=== PATIENT | male | born 1935 | race Caucasian/White ===

== ENCOUNTER → 2019-09-08 | Outpatient (CLI) | payer MEDICARE, OTHER ==
--- NOTE | 2019-09-08 13:51 | Diagnostic Imaging Report ---
INDICATION: Pre-MRI pacemaker. TIME OF EXAM: 1:46 PM Heart size normal. Dual-lead left subclavian cardiac pacemaker is noted. No abandoned leads are identified. The lungs are clear. No infiltrates are identified. There is no effusion or pneumothorax. IMPRESSION: No acute feature is detected. Dictated by: Dictated on workstation # [id number]
--- NOTE | 2019-09-08 14:52 | Diagnostic Imaging Report ---
EXAMINATION: MRI lumbar spine without contrast. TECHNIQUE: Multiplanar, multisequence MRI of the lumbar spine was performed without contrast. HISTORY: Back pain. COMPARISON: None available. FINDINGS: The alignment of the lumbar spine is normal. Vertebral bodies demonstrate normal marrow signal intensity on all sequences. There are no compression fractures. The conus medullaris terminates at the level of L1-L2. The distal spinal cord signal intensity is normal. Intervertebral discs are diffusely desiccated. There is height loss at L3-L4 and L4-L5. Limited views of the abdomen and pelvis show no soft tissue abnormality. The aorta is normal. There is a Schmorl's node in superior endplate of L4. L1-L2: The disc is normal in configuration. Facet joints are normal. There is no neuroforaminal stenosis. There is no spinal canal stenosis. L2-L3: The disc is normal in configuration. Facet joints are normal. There is no neuroforaminal stenosis. There is no spinal canal stenosis. L3-L4: There is a mild disc bulge and mild facet arthropathy. There is minimal neuroforaminal stenosis. No spinal canal stenosis. L4-L5: There is a moderate-sized disc bulge with moderate facet arthropathy. There is mild bilateral neural foraminal stenosis with mild narrowing of the lateral recesses. L5-S1: The disc is normal in configuration. Facet joints are normal. There is no neuroforaminal stenosis. There is no spinal canal stenosis. IMPRESSION: 1. Mild disc and facet disease from L3-L5. Dictated by: Dictated on workstation # [id number]
== END ==
LOC: RAD 13:00
PROVIDERS: ATTEND Family Medicine
DX: M47.816 Spondylosis without myelopathy or radiculopathy, lumbar region (principal); Z95.0 Presence of cardiac pacemaker
CPT/HCPCS: 71045; 72148

== ENCOUNTER 2020-10-01 06:45 | Inpatient (IN) | payer MEDICARE, OTHER ==
[~2020-10-01] VITALS: Ht 180 cm; Wt 70.0 kg
--- NOTE | 2020-10-01 07:06 | ED General ---
General Stated Complaint: SOB/CHEST PAIN Source of Information: Patient History of Present Illness Date Seen by Provider: Oct 01, 2020 Time Seen by Provider: 06:58 Initial Comments Patient is an 84-year-old male with history of A. fib, CAD dementia who presents with intermittent daily chest pain with exertion starting 2 to 3 weeks ago with escalation in the past 48 hours. Patient reports dyspnea and chest pressure with mild exertion which persists after nitroglycerin and rest. Patient's current episode started at 5 AM after getting out of bed to use the bathroom. He reports mild dyspnea chest pressure. He denies nausea vomiting sweats. No abdominal pain. Patient's assistant community manager Dr. Luke Olvera practices at [facility]. Patient scheduled for stress test in 4 days. Timing/Duration: 1-3 Hours Severity: Moderate Modifying Factors: improves with Other Associated Systoms: Other Allergies and Home Medications Allergies Coded Allergies: No Known Drug Allergies (Unverified , 09/08/19) Patient Home Medication List Home Medication List Reviewed: Yes Review of Systems Review of Systems Constitutional: see HPI EENTM: see HPI Respiratory: see HPI Cardiovascular: see HPI Gastrointestinal: see HPI Genitourinary: see HPI Musculoskeletal: see HPI Skin: see HPI Psychiatric/Neurological: See HPI Hematologic/Lymphatic: See HPI Immunological/Allergic: see HPI All Other Systems Reviewed Negative Unless Noted: Yes Past Bvvsoen-Itqioj-Tsdojj Hx Patient Social History Tobacco Use?: Yes Physical Exam Vital Signs Vital Signs - First Documented 10/01/20 06:57 Temp 36.1 Pulse 61 Resp 22 B/P (MAP) 146/52 (83) Pulse Ox 93 O2 Delivery Room Air Capillary Refill : Height, Weight, BMI Height: '" Weight: lbs. oz. kg; BMI Method: General Appearance: No Apparent Distress, WD/WN Eyes: Bilateral Eye Normal Inspection, Bilateral Eye PERRL, Bilateral Eye EOMI HEENT: PERRL/EOMI, Normal ENT Inspection Neck: Full Range of Motion, Normal Inspection, Supple Respiratory: Chest Non Tender, Lungs Clear Cardiovascular: Regular Rate, Rhythm Gastrointestinal: Soft, Other (Colostomy present) Back: Normal Inspection Extremity: Normal Capillary Refill Neurologic/Psychiatric: Alert, Oriented x3 Skin: Normal Color Focused Exam Sepsis Stage: Ruled Out Progress/Results/Core Measures Suspected Sepsis SIRS Temperature: Pulse: Respiratory Rate: Laboratory Tests 10/01/20 06:51: White Blood Count 8.9 Blood Pressure / Mean: Laboratory Tests 10/01/20 06:51: Creatinine 1.09, INR Comment 2.8H, Platelet Count 206, Total Bilirubin 0.4 Results/Orders Lab Results Laboratory Tests Test 10/01/20 06:51 Range/Units White Blood Count 8.9 4.3-11.0 10^3/uL Red Blood Count 4.01 L 4.35-5.85 10^6/uL Hemoglobin 12.4 L 13.3-17.7 G/DL Hematocrit 37 L 40-54 % Mean Corpuscular Volume 92 80-99 FL Mean Corpuscular Hemoglobin 31 25-34 PG Mean Corpuscular Hemoglobin Concent 34 32-36 G/DL Red Cell Distribution Width 13.1 10.0-14.5 % Platelet Count 206 130-400 10^3/uL Mean Platelet Volume 9.0 7.4-10.4 FL Immature Granulocyte % (Auto) 1 % Neutrophils (%) (Auto) 79 H 42-75 % Lymphocytes (%) (Auto) 6 L 12-44 % Monocytes (%) (Auto) 12 0-12 % Eosinophils (%) (Auto) 2 0-10 % Basophils (%) (Auto) 0 0-10 % Neutrophils # (Auto) 7.0 1.8-7.8 X 10^3 Lymphocytes # (Auto) 0.6 L 1.0-4.0 X 10^3 Monocytes # (Auto) 1.1 H 0.0-1.0 X 10^3 Eosinophils # (Auto) 0.2 0.0-0.3 10^3/uL Basophils # (Auto) 0.0 0.0-0.1 10^3/uL Immature Granulocyte # (Auto) 0.1 0.0-0.1 10^3/uL Neutrophils % (Manual) 86 % Lymphocytes % (Manual) 7 % Monocytes % (Manual) 7 % Prothrombin Time 29.2 H 12.2-14.7 SEC INR Comment 2.8 H 0.8-1.4 Sodium Level 134 L 135-145 MMOL/L Potassium Level 4.5 3.6-5.0 MMOL/L Chloride Level 99 98-107 MMOL/L Carbon Dioxide Level 25 21-32 MMOL/L Anion Gap 10 5-14 MMOL/L Blood Urea Nitrogen 12 7-18 MG/DL Creatinine 1.09 0.60-1.30 MG/DL Estimat Glomerular Filtration Rate 64 BUN/Creatinine Ratio 11 Glucose Level 123 H 70-105 MG/DL Calcium Level 8.8 8.5-10.1 MG/DL Corrected Calcium 9.4 8.5-10.1 MG/DL Total Bilirubin 0.4 0.1-1.0 MG/DL Aspartate Amino Transf (AST/SGOT) 19 5-34 U/L Alanine Aminotransferase (ALT/SGPT) 13 0-55 U/L Alkaline Phosphatase 94 40-136 U/L Troponin I < 0.30 <0.30 NG/ML Pro-B-Type Natriuretic Peptide 249.5 H <75.0 PG/ML Total Protein 6.4 6.4-8.2 GM/DL Albumin 3.3 3.2-4.5 GM/DL My Orders Orders - BIRDIE FRIEDMAN DO Cbc With Automated Diff (10/01/20 07:04) Comprehensive Metabolic Panel (10/01/20 07:04) Chest 1 View Ap/Pa Only (10/01/20 07:04) Probnp Fs (10/01/20 07:04) Ekg-Prn For Chest Pain Or Rhyt (10/01/20 07:04) Aspirin Chewable Tablet (Baby Aspirin Ch (10/01/20 07:15) Nitroglycerin 0.4 Mg Btl 25's (Nitrostat (10/01/20 07:15) Manual Differential (10/01/20 06:51) Troponin I Fs (10/01/20 07:36) Furosemide Injection (Lasix Injection) (10/01/20 07:45) Digoxin (10/01/20 07:52) Protime With Inr (10/01/20 07:52) Medications Given in ED Current Medications Medications Dose Ordered Sig/Aleja Route Start Time Stop Time Status Last Admin Dose Admin Aspirin 324 mg ONCE ONCE PO 10/01/20 07:15 10/01/20 07:16 DC 10/01/20 07:15 324 MG Furosemide 40 mg ONCE ONCE IVP 10/01/20 07:45 10/01/20 07:46 DC 10/01/20 07:45 40 MG Nitroglycerin 1 TAB Q 5 MIN X 3 NEEDED PRN SL 10/01/20 07:15 10/01/20 07:16 0.4 MG Vital Signs/I&O 10/01/20 10/01/20 06:57 06:57 Temp 36.1 Pulse 61 Resp 22 B/P (MAP) 146/52 (83) Pulse Ox 93 O2 Delivery Room Air Room Air Capillary Refill : Departure Communication (Admissions) Chest x-ray: EKG: Normal sinus rhythm, no acute ST-T wave changes, Anginal chest pain with shortness of breath with increasing severity with persistence despite rest and nitroglycerin at home. Findings of congestive heart failure and chest x-ray. Aspirin and nitroglycerin given in the emergency department. Chest pain and shortness resolved after Lasix. However, patient still requiring 2 L of oxygen to maintain O2 saturations above 90%. Dr. Melgar accepts to [facility]. Dr. Soler notified of consult. Impression Primary Impression: Acute coronary syndrome Additional Impressions: Congestive heart failure Acute respiratory failure with hypoxia Disposition: ADMITTED INPATIENT Condition: Stable Admissions Decision to Admit Reason: Admit from ER (General) Decision to Admit/Date: Oct 01, 2020 Time/Decision to Admit Time: 09:00 Transfer Method of Transfer: EMS Departure-Patient Inst. Referrals: NOAM TERRELL MD (PCP/Family) Primary Care Physician BIRDIE FRIEDMAN DO Oct 01, 2020 07:06
[2020-10-01 07:08] LABS: BASOPHILS % (AUTO) 0 % (0-10); EOSINOPHILS # (AUTO) 0.2 10^3/uL (0.0-0.3); EOSINOPHILS % (AUTO) 2 % (0-10); HEMATOCRIT 37 % (40-54); HEMOGLOBIN 12.4 G/DL (13.3-17.7); LYMPHOCYTES # (AUTO) 0.6 X 10^3 (1.0-4.0); LYMPHOCYTES % (AUTO) 6 % (12-44); MEAN CORPUSCULAR HEMOGLOBIN 31 PG (25-34); MEAN CORPUSCULAR HGB CONC 34 G/DL (32-36); MEAN CORPUSCULAR VOLUME 92 FL (80-99); MONOCYTES # (AUTO) 1.1 X 10^3 (0.0-1.0); MONOCYTES % (AUTO) 12 % (0-12); NEUTROPHILS % (AUTO) 79 % (42-75); PLATELET COUNT 206 10^3/uL (130-400); WHITE BLOOD COUNT 8.9 10^3/uL (4.3-11.0)
[2020-10-01] MEDS ORDERED: NITROGLYCERIN 0.4 MG SL TABS BTL 25'S SL PRN ×2 (07:15→11:00)
[2020-10-01] MEDS ORDERED: ASPIRIN 81 MG CHEW (CHILDREN'S ASA) PO ONE (07:15)
[2020-10-01 07:27] LABS: ALBUMIN 3.3 GM/DL (3.2-4.5); BILIRUBIN,TOTAL 0.4 MG/DL (0.1-1.0); CALCIUM 8.8 MG/DL (8.5-10.1); CREATININE SERUM 1.09 MG/DL (0.60-1.30); POTASSIUM 4.5 MMOL/L (3.6-5.0); TOTAL PROTEIN 6.4 GM/DL (6.4-8.2)
[2020-10-01 07:30] LABS: LYMPHOCYTES % (MANUAL) 7 %; MONOCYTES % (MANUAL) 7 %; NEUTROPHILS % (MANUAL) 86 %
--- NOTE | 2020-10-01 07:37 | Diagnostic Imaging Report ---
Clinical indication: Patient with chest pain shortness of breath. Exam: Portable chest x-ray upright view. Comparisons: Chest x-ray dated 09/08/2019. Findings: Lungs/pleura: There is mild patchy airspace opacities in both lung bases which may be related to pulmonary congestion. Superimposed infectious process cannot be completely excluded. There is no pneumothorax. There is no pleural effusion. Mediastinum: Unremarkable. Pulmonary vasculature: There is interval mild pulmonary vascular congestion. Heart: There is mild cardiomegaly. Cardiac pacemaker again seen overlying left chest. Bones/extrathoracic soft tissue: There are degenerative spurs involving the spine. Impression: 1: There is cardiomegaly with interval development of mild pulmonary vascular congestion. 2: There is increased lung markings and mild air space opacities involving both lung bases. These findings may be related to pulmonary congestion, but superimposed infiltrate cannot be completely excluded. Dictated by: Dictated on workstation # [id number]
[2020-10-01] MEDS ORDERED: FUROSEMIDE 40 MG/4 ML INJ (LASIX) IVP ONE (07:45)
[2020-10-01 08:06] LABS: INR 2.8 (0.8-1.4); PROTHROMBIN TIME PATIENT 29.2 SEC (12.2-14.7)
[2020-10-01 10:42] VITALS: BP 135/60
[2020-10-01] MEDS ORDERED: CATHETER FLUSH 10 ML SYR IV PRN (11:00)
--- NOTE | 2020-10-01 11:29 | Consultation-Cardiology ---
HPI-Cardiology Cardiology Consultation: Date of Consultation 10/01/2020 Date of Admission 10/01/2020 Attending Physician Evelyn Melgar DO Admitting Physician Kang Wilder MD Consulting Physician PATRICIA LOWE JR, MD HPI: Time Seen by a Provider: 11:24 Chief Complaint: Reason for consultation: Congestive heart failure. I had the pleasure of seeing Alphonse on the medical/surgical unit at [facility] this morning. He has a cardiac history of sick sinus syndrome status post permanent pacemaker placement in 2013, paroxysmal atrial fibrillation discovered around the time of his pacemaker placement and hyperlipidemia. 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 He normally follows with a senior informatica etl developer in [place], [place]. For about the past 2 weeks he has had increasing dyspnea on exertion. At times this is associated with chest tightness. Last week he went to see his regular senior informatica etl developer but ended up having to see a nurse practitioner. He was given sublingual nitroglycerin and scheduled for a stress test later this week. He has tried taking a couple of sublingual nitroglycerin but this did not help his shortness of breath or chest tightness. This morning after he woke up he became more short of breath and again with chest tightness. He then became very dizzy and fell down. Fortunately, he did not injure himself. He was able to get up off the floor and he called one of his children who then called 911. He was taken by EMS to [facility] emergency room. He was found to be in probable heart failure and then was transferred to our hospital for further treatment and evaluation. He was given intravenous furosemide in the outside emergency room but he states this does not really seem to have helped with his breathing. When I saw him he was still feeling slightly short of breath and having some chest tightness. He denies paroxysmal nocturnal dyspnea but he does get up several times during the night to urinate and he has had shortness of breath when he gets up to use the bathroom. This does not usually happen to him. He denies orthopnea. He denies palpitations, syncope, or ankle edema. He does not smoke cigarettes. Certain portions of this document may have been dictated utilizing voice recognition technology. Inherent to this technology, typographical and grammatical errors may exist. As much as I am diligent to identify and correct these mistakes, some errors may remain in the document. Review of Systems-Cardiology Review of Systems Other comments Review of 10 organ systems is as per the history of present illness, otherwise negative. All Other Systems Reviewed Negative Unless Noted: Yes QOJ-Jmepsq-Nejlqz Hx Patient Social History Have you traveled recently?: No Alcohol Use?: No Pt feels they are or have been: No Past Medical History PMH As described under Assessment. Family Medical History Family Medical History: The patient does not know of any family history of premature coronary artery disease. Allergies and Home Medications Allergies Coded Allergies: Sulfa (Sulfonamide Antibiotics) (Verified Allergy, Unknown, 10/01/20) Patient Home Medication List Home Medication List Reviewed: Yes Exam Vital Signs Vital Signs Date Time Temp Pulse Resp B/P (MAP) Pulse Ox O2 Delivery O2 Flow Rate FiO2 10/01/20 09:27 36.0 62 20 123/50 (83) 98 Nasal Cannula 2.50 Physical Exam General: Alert. No acute distress. Well nourished and appears stated age. Eye: Extraocular movements are intact. Conjunctivae are clear. There are no xanthelasma. HENT: Normocephalic. Atraumatic. Carotid pulsations 2/2 without bruits. Neck: Jugular venous pressure does not appear elevated. No thyromegaly appreciated. Respiratory: Lungs are clear to auscultation. Respirations are non-labored. Breath sounds are equal. Symmetrical chest wall expansion. Cardiovascular: Normal rate. Regular rhythm. No murmur. No gallop. Point of maximal impulse is not appear displaced. Good pulses equal in all extremities. No edema. Gastrointestinal: Soft. Normal bowel sounds. Skin: Skin turgor is normal. There is no pallor. Musculoskeletal: No kyphosis or scoliosis appreciated. Neurologic: Alert and oriented to person, place, time. Cranial nerves 3-12 appear grossly intact. The patient has good motor tone strength in the upper and lower extremities bilaterally. Psychiatric: Cooperative. Appropriate mood & affect. Labs Laboratory Tests Test 10/01/20 06:51 Range/Units White Blood Count 8.9 4.3-11.0 10^3/uL Red Blood Count 4.01 L 4.35-5.85 10^6/uL Hemoglobin 12.4 L 13.3-17.7 G/DL Hematocrit 37 L 40-54 % Mean Corpuscular Volume 92 80-99 FL Mean Corpuscular Hemoglobin 31 25-34 PG Mean Corpuscular Hemoglobin Concent 34 32-36 G/DL Red Cell Distribution Width 13.1 10.0-14.5 % Platelet Count 206 130-400 10^3/uL Mean Platelet Volume 9.0 7.4-10.4 FL Immature Granulocyte % (Auto) 1 % Neutrophils (%) (Auto) 79 H 42-75 % Lymphocytes (%) (Auto) 6 L 12-44 % Monocytes (%) (Auto) 12 0-12 % Eosinophils (%) (Auto) 2 0-10 % Basophils (%) (Auto) 0 0-10 % Neutrophils # (Auto) 7.0 1.8-7.8 X 10^3 Lymphocytes # (Auto) 0.6 L 1.0-4.0 X 10^3 Monocytes # (Auto) 1.1 H 0.0-1.0 X 10^3 Eosinophils # (Auto) 0.2 0.0-0.3 10^3/uL Basophils # (Auto) 0.0 0.0-0.1 10^3/uL Immature Granulocyte # (Auto) 0.1 0.0-0.1 10^3/uL Neutrophils % (Manual) 86 % Lymphocytes % (Manual) 7 % Monocytes % (Manual) 7 % Prothrombin Time 29.2 H 12.2-14.7 SEC INR Comment 2.8 H 0.8-1.4 Sodium Level 134 L 135-145 MMOL/L Potassium Level 4.5 3.6-5.0 MMOL/L Chloride Level 99 98-107 MMOL/L Carbon Dioxide Level 25 21-32 MMOL/L Anion Gap 10 5-14 MMOL/L Blood Urea Nitrogen 12 7-18 MG/DL Creatinine 1.09 0.60-1.30 MG/DL Estimat Glomerular Filtration Rate 64 BUN/Creatinine Ratio 11 Glucose Level 123 H 70-105 MG/DL Calcium Level 8.8 8.5-10.1 MG/DL Corrected Calcium 9.4 8.5-10.1 MG/DL Total Bilirubin 0.4 0.1-1.0 MG/DL Aspartate Amino Transf (AST/SGOT) 19 5-34 U/L Alanine Aminotransferase (ALT/SGPT) 13 0-55 U/L Alkaline Phosphatase 94 40-136 U/L Troponin I < 0.30 <0.30 NG/ML Pro-B-Type Natriuretic Peptide 249.5 H <75.0 PG/ML Total Protein 6.4 6.4-8.2 GM/DL Albumin 3.3 3.2-4.5 GM/DL Radiology SINGLE VIEW CHEST X-RAY ([facility]) 1: There is cardiomegaly with interval development of mild pulmonary vascular congestion. 2: There is increased lung markings and mild air space opacities involving both lung bases. These findings may be related to pulmonary congestion, but superimposed infiltrate cannot be completely excluded. ECG Impression ECG Comment Electrocardiogram from [facility] shows atrial pacing with nonspecific intraventricular conduction delay and nonspecific ST changes. Diagnosis/Problems Diagnosis/Problems (1) Congestive heart failure Status: Acute Assessment & Plan: His lungs are clear but he has evidence of pulmonary congestion on his chest x-ray and elevated BNP level. These findings are consistent with acute heart failure. He denies any previous history of heart failure or reduced ejection fraction. This may be heart failure with preserved ejection fraction. I will start him on intravenous Lasix 40 mg daily. I will obtain an echocardiogram in the morning. I recommend serial troponin levels in light of his chest tightness. I suspect the chest tightness may be related to the heart failure but coronary ischemia cannot be completely excluded. I should note, the first troponin level from the outside emergency room was undetectable. (2) Paroxysmal atrial fibrillation Assessment & Plan: He is in an atrial paced rhythm at the present time. He takes warfarin for stroke prophylaxis. He is not on any AV kwan blocking agents. (3) Sick sinus syndrome Assessment & Plan: His electrocardiogram shows an atrial paced rhythm. (4) Cardiac pacemaker in situ Assessment & Plan: He follows with an outside senior informatica etl developer for his routine pacemaker checks. I do not see any strong indication for a pacemaker check while he is here in the hospital. (5) Mixed hyperlipidemia Assessment & Plan: Resume his outpatient dose of atorvastatin. PATRICIA LOWE JR, MD Oct 01, 2020 11:29
[2020-10-01] MEDS ORDERED: CYCL1DRO OU (12:16)
[2020-10-01] MEDS ORDERED: ATOR20TA66 PO (12:16)
[2020-10-01] MEDS ORDERED: FLUT15.845 NS (12:16)
[2020-10-01] MEDS ORDERED: MAGN200T8 PO (12:18)
[2020-10-01] MEDS ORDERED: TMSL.4C PO (12:19)
[2020-10-01] MEDS ORDERED: ACET325C7 PO (12:20)
[2020-10-01] MEDS ORDERED: C,E,1CAP PO (12:21)
[2020-10-01] MEDS ORDERED: WARF-48 PO (12:22)
[2020-10-01] MEDS ORDERED: DIGO-8 PO (12:24)
[2020-10-01] MEDS ORDERED: DRON400T6 PO (12:25)
--- NOTE | 2020-10-01 12:26 | History & Physical-Hospitalist ---
History of Present Illness HPI/Chief Complaint Chief complaint: Chest pain History of present illness: This is an 84-year-old white male clinic patient of [facility] who has a past medical history of cardiac issues who presented to the [place] ER with chest pain. He was in need of cardiac risk ratification cardiology consultation. His regular primary typewriter mechanic is Dr. Murray at [facility]. Family is at the bedside. Source: patient, family Exam Limitations: no limitations Date Seen 10/01/20 Time Seen by a Provider: 12:45 Attending Physician Evelyn Melgar DO PCP Self,Kang HUGHES Referring Physician Date of Admission Oct 01, 2020 at 10:34 Home Medications & Allergies Home Medications Reviewed patient Home Medication Reconciliation performed by pharmacy medication reconciliations accelerator technician and/or nursing. Patients Allergies have been reviewed. Allergies Allergies Coded Allergies Sulfa (Sulfonamide Antibiotics) (Verified Allergy, Unknown, 10/01/20) Past Kudevpc-Tyoljh-Ahajaw Hx Patient Social History Marrital Status: single Employed/Student: retired Tobacco Use?: Yes Smoking Status: Never a Smoker Use of E-Cig and/or Vaping dev: No Substance use?: No Alcohol Use?: No Pt feels they are or have been: No Immunizations Up To Date First/Initial COVID19 Vaccinat: March 2020 Second COVID19 Vaccination Julián: April 2020 Tetanus Booster (TDap): Unknown Current Status Advance Directives: No Communicates: Verbally Primary Language: Japanese Preferred Spoken Language: Japanese Is interpretation needed?: No Implanted or Applied Medical D: Pacemaker, Stents Past Medical History Surgeries: Pacemaker Atrial Fibrillation, High Cholesterol, Hypertension Review of Systems Constitutional: see HPI Cardiovascular: chest pain Physical Exam Physical Exam Vital Signs Vital Signs - First Documented 10/01/20 10/01/20 06:57 09:27 Temp 36.1 Pulse 61 Resp 22 B/P (MAP) 146/52 (83) Pulse Ox 93 O2 Delivery Room Air O2 Flow Rate 2.50 Capillary Refill : Less Than 3 Seconds Height, Weight, BMI Height: '" Weight: lbs. oz. kg; 21.60 BMI Method: General Appearance: No Apparent Distress, Chronically ill Eyes: Right Eye Normal Inspection, Right Eye PERRL HEENT: PERRL/EOMI, Normal ENT Inspection, Pharynx Normal, Moist Mucous Membranes Neck: Full Range of Motion, Normal Inspection, Non Tender Respiratory: Chest Non Tender, Lungs Clear, Normal Breath Sounds, No Accessory Muscle Use, No Respiratory Distress Cardiovascular: Regular Rate, Rhythm, No Edema, No Gallop, No JVD, No Murmur, Normal Peripheral Pulses Gastrointestinal: Normal Bowel Sounds, No Organomegaly, No Pulsatile Mass, Non Tender, Soft Back: Normal Inspection, No CVA Tenderness, No Vertebral Tenderness Extremity: Normal Capillary Refill, Normal Inspection, Normal Range of Motion, Non Tender, No Calf Tenderness, No Pedal Edema Neurologic/Psychiatric: Alert, Oriented x3, No Motor/Sensory Deficits, Normal Mood/Affect Skin: Normal Color, Warm/Dry Lymphatic: No Adenopathy Results Results/Procedures Labs Laboratory Tests 10/01/20 06:51 Patient resulted labs reviewed. Assessment/Plan Admission Diagnosis Assessment: Chest pain Advanced age Plan: Supportive care Cardiology consult Admission Status: Observation Diagnosis/Problems Diagnosis/Problems (1) Chest pain (2) Sick sinus syndrome (3) Cardiac pacemaker in situ (4) Paroxysmal atrial fibrillation Clinical Quality Measures AMI/AHF: ASA po Prior to arrival: EVELYN Jefferson DO Oct 01, 2020 12:26
[2020-10-01] MEDS ORDERED: ALBU1.25 INH (12:28)
[2020-10-01] MEDS: CATHETER FLUSH 10 ML SYR IV SCH ×2 (15:01→22:00)
[2020-10-01 16:00] VITALS: BP 135/60
[2020-10-01] MEDS ORDERED: FUROSEMIDE 40 MG/4 ML INJ (LASIX) IV SCH (17:00)
[2020-10-01 19:22] VITALS: BP 133/79
[2020-10-01] MEDS: DRONEDARONE TABLET 400 MG TABLET PO SCH (20:42)
[2020-10-01] MEDS: MAGNESIUM OXIDE (MAG-OX)400 MG TAB PO SCH (20:42)
[2020-10-01] MEDS: ARTIFICAL TEARS 0.4 ML UNIT DOSE (REFRESH PLUS) OU SCH (20:43)
[2020-10-01] MEDS: ACETAMINOPHEN 500 MG TAB (TYLENOL) PO SCH (20:43)
[2020-10-01] MEDS: TAMSULOSIN 0.4 MG (FLOMAX) CAP PO SCH (20:43)
[2020-10-01] MEDS ORDERED: warFARin 5 MG (COUMADIN) TAB PO SCH (21:00)
[2020-10-01] MEDS ORDERED: DIGOXIN 0.125 MG (LANOXIN) TAB PO SCH (21:00)
[2020-10-02] VITALS: BP_SYST 119; BP_SYST 137; BP_DIAS 60; BP_DIAS 70
[2020-10-02 04:00] VITALS: BP 148/73
[2020-10-02 05:26] LABS: BASOPHILS % (AUTO) 0 % (0-10); EOSINOPHILS # (AUTO) 0.4 10^3/uL (0.0-0.3); EOSINOPHILS % (AUTO) 4 % (0-10); HEMATOCRIT 39 % (40-54); HEMOGLOBIN 12.9 g/dL (13.3-17.7); LYMPHOCYTES # (AUTO) 0.8 10^3/uL (1.0-4.0); LYMPHOCYTES % (AUTO) 10 % (12-44); MEAN CORPUSCULAR HEMOGLOBIN 31 pg (25-34); MEAN CORPUSCULAR HGB CONC 34 g/dL (32-36); MEAN CORPUSCULAR VOLUME 91 fL (80-99); MEAN PLATELET VOLUME 9.3 fL (9.0-12.2); MONOCYTES % (AUTO) 13 % (0-12); NEUTROPHILS # (AUTO) 5.7 10^3/uL (1.8-7.8); NEUTROPHILS % (AUTO) 72 % (42-75); PLATELET COUNT 188 10^3/uL (130-400)
[2020-10-02 05:56] LABS: ALBUMIN 3.2 GM/DL (3.2-4.5)
[2020-10-02 05:57] LABS: CALCIUM 8.9 MG/DL (8.5-10.1)
[2020-10-02 05:59] LABS: INR 3.2 (0.8-1.4); TOTAL PROTEIN 6.5 GM/DL (6.4-8.2)
[2020-10-02 06:00] LABS: BILIRUBIN,TOTAL 0.6 MG/DL (0.1-1.0)
[2020-10-02 06:02] LABS: CREATININE SERUM 1.02 MG/DL (0.60-1.30)
[2020-10-02] MEDS: CATHETER FLUSH 10 ML SYR IV SCH ×3 (06:36→23:20)
[2020-10-02 07:38] VITALS: BP 118/59
[2020-10-02] MEDS: MAGNESIUM OXIDE (MAG-OX)400 MG TAB PO SCH ×2 (08:50→20:23)
[2020-10-02] MEDS: ARTIFICAL TEARS 0.4 ML UNIT DOSE (REFRESH PLUS) OU SCH ×2 (08:50→20:24)
[2020-10-02] MEDS: TAMSULOSIN 0.4 MG (FLOMAX) CAP PO SCH ×2 (08:50→20:23)
[2020-10-02] MEDS: DRONEDARONE TABLET 400 MG TABLET PO SCH ×2 (08:50→20:23)
[2020-10-02] MEDS: MULTIVIT W/MINERALS TAB (THERAGRAN M) PO SCH (08:50)
[2020-10-02] MEDS: FLUTICASONE NASAL SPRAY (FLONASE) 16 GM BTL NS SCH (08:51)
[2020-10-02] MEDS: FUROSEMIDE 40 MG/4 ML INJ (LASIX) IVP SCH (08:51)
[2020-10-02] MEDS: RT-ALBUTEROL SULF 2.5 MG/3 ML PRE-MIX VIAL INH SCH (09:33)
[2020-10-02] MEDS ORDERED: RT-ALBUINH INH (10:36)
[2020-10-02] MEDS ORDERED: MAGN400T8 PO (10:36)
[2020-10-02] MEDS ORDERED: WARF2.5T8 PO (10:36)
[2020-10-02] MEDS ORDERED: ACET-93 PO (10:36)
[2020-10-02] MEDS ORDERED: NITR0.4T42 PO (10:40)
[2020-10-02] MEDS ORDERED: CARB15DR OU (10:43)
[2020-10-02 12:19] VITALS: BP 119/59
[2020-10-02 15:27] VITALS: BP 139/73
--- NOTE | 2020-10-02 17:53 | Cardiology Progress Note ---
Progress Note-Cardiology Events since last exam Date Seen by Provider: Oct 02, 2020 Time Seen by Provider: 17:48 Events since last exam I am seeing him due to heart failure. He normally follows with a content assistant in [place]. His breathing is improved but not quite back to baseline. He is getting short of breath just walking to the bathroom. 2 weeks ago he could walk a mile and a half without shortness of breath. He denies chest discomfort, palpitations, syncope, or ankle edema. I also spoke to 2 family members who were in his room. His family members tell me that he does eat a lot of prepared foods. Certain portions of this document may have been dictated utilizing voice recognition technology. Inherent to this technology, typographical and grammatical errors may exist. As much as I am diligent to identify and correct these mistakes, some errors may remain in the document. Vitals Last set of Vitals Signs Vital Signs 10/02/20 10/02/20 12:19 15:27 Temp 36.4 Pulse 97 Resp 28 B/P (MAP) 139/73 (95) Pulse Ox 93 O2 Delivery Room Air O2 Flow Rate 1.50 Labs Labs Laboratory Tests 10/02/20 05:05 Exam Vital Signs Vital Signs Date Time Temp Pulse Resp B/P (MAP) Pulse Ox O2 Delivery O2 Flow Rate FiO2 10/02/20 15:27 36.4 97 139/73 (95) 93 Room Air 10/02/20 12:19 28 1.50 Physical Exam General: Alert. No acute distress. Eye: No xanthelasma. HENT: Normocephalic. Neck: Jugular venous pressure does not appear elevated. Respiratory: Lungs may have some fine rhonchi at the bases. Respirations are non-labored. Breath sounds are equal. Symmetrical chest wall expansion. Cardiovascular: Normal rate. Regular rhythm. No murmur. No gallop. No edema. Gastrointestinal: Soft. Normal bowel sounds. Skin: Warm. Dry. Neurologic: Alert and oriented to person, place, time. Cranial nerves 3-11 grossly intact. Psychiatric: Cooperative. Appropriate mood & affect. Labs Laboratory Tests Test 10/02/20 05:05 Range/Units White Blood Count 8.0 4.3-11.0 10^3/uL Red Blood Count 4.21 L 4.30-5.52 10^6/uL Hemoglobin 12.9 L 13.3-17.7 g/dL Hematocrit 39 L 40-54 % Mean Corpuscular Volume 91 80-99 fL Mean Corpuscular Hemoglobin 31 25-34 pg Mean Corpuscular Hemoglobin Concent 34 32-36 g/dL Red Cell Distribution Width 13.0 10.0-14.5 % Platelet Count 188 130-400 10^3/uL Mean Platelet Volume 9.3 9.0-12.2 fL Immature Granulocyte % (Auto) 1 % Neutrophils (%) (Auto) 72 42-75 % Lymphocytes (%) (Auto) 10 L 12-44 % Monocytes (%) (Auto) 13 H 0-12 % Eosinophils (%) (Auto) 4 0-10 % Basophils (%) (Auto) 0 0-10 % Neutrophils # (Auto) 5.7 1.8-7.8 10^3/uL Lymphocytes # (Auto) 0.8 L 1.0-4.0 10^3/uL Monocytes # (Auto) 1.0 0.0-1.0 10^3/uL Eosinophils # (Auto) 0.4 H 0.0-0.3 10^3/uL Basophils # (Auto) 0.0 0.0-0.1 10^3/uL Immature Granulocyte # (Auto) 0.1 0.0-0.1 10^3/uL Prothrombin Time 33.0 H 12.2-14.7 SEC INR Comment 3.2 H 0.8-1.4 Sodium Level 133 L 135-145 MMOL/L Potassium Level 4.0 3.6-5.0 MMOL/L Chloride Level 97 L 98-107 MMOL/L Carbon Dioxide Level 26 21-32 MMOL/L Anion Gap 10 5-14 MMOL/L Blood Urea Nitrogen 15 7-18 MG/DL Creatinine 1.02 0.60-1.30 MG/DL Estimat Glomerular Filtration Rate 70 BUN/Creatinine Ratio 15 Glucose Level 104 70-105 MG/DL Calcium Level 8.9 8.5-10.1 MG/DL Corrected Calcium 9.5 8.5-10.1 MG/DL Total Bilirubin 0.6 0.1-1.0 MG/DL Aspartate Amino Transf (AST/SGOT) 20 5-34 U/L Alanine Aminotransferase (ALT/SGPT) 16 0-55 U/L Alkaline Phosphatase 83 40-136 U/L Total Protein 6.5 6.4-8.2 GM/DL Albumin 3.2 3.2-4.5 GM/DL Triglycerides Level 52 <150 MG/DL Cholesterol Level 98 < 200 MG/DL LDL Cholesterol Direct 42 1-129 MG/DL VLDL Cholesterol 10 5-40 MG/DL HDL Cholesterol 40 40-60 MG/DL Radiology ECHOCARDIOGRAM (10/02/2020): 1. Normal left ventricular chamber size, wall thickness and systolic function with an estimated ejection fraction of 60-65%. 2. Grade 1 diastolic dysfunction. 3. Mild aortic regurgitation. 4. Estimated pulmonary artery systolic pressure is 34 mmHg. Diagnosis/Problems Diagnosis/Problems (1) Acute diastolic congestive heart failure Assessment & Plan: He has a normal ejection fraction with no significant valvular heart disease. He does have grade 1 diastolic dysfunction. From his family's description, he probably eats food that is high in sodium. This may have contributed to his congestive heart failure. Symptomatically he is somewhat improved but not quite back to baseline. I suggest we continue with the IV Lasix and obtain a follow-up chest x-ray in the morning. (2) Aortic regurgitation Assessment & Plan: This was an incidental finding on his echocardiogram. This is in the mild range and should not be contributing to his symptoms. (3) Paroxysmal atrial fibrillation Assessment & Plan: No signs of recurrent atrial fibrillation during this admission. He takes warfarin for stroke prophylaxis. He is not on any AV kwan blocking agents. (4) Sick sinus syndrome Assessment & Plan: He has a permanent pacemaker that appears to be functioning normally. (5) Cardiac pacemaker in situ Assessment & Plan: He follows with an outside content assistant for his routine pacemaker checks. I do not see any strong indication for a pacemaker check while he is here in the hospital. (6) Mixed hyperlipidemia Assessment & Plan: Continue atorvastatin. PATRICIA LOWE JR, MD Oct 02, 2020 17:53
--- NOTE | 2020-10-02 19:52 | Progress Note ---
JOON LESLIE 10/02/201951: Subjective Subjective/Events-last exam Alphonse Mireles is an 84 year [place] white male in the hospital due to chest pain and shortness of breath. The pain is described as heavy and continuous, rated 5/10. This episode has lasted for the last 2 weeks. Reports chest pain off and on prior to this. Patient fell yesterday and is ultimately what led him to be admitted. Patient was very active prior to the chest pain and is eager to hear results. It was mentioned by family members that his memory may not be quite what it used to be but upon performing mini mental exam and talking with patient he still seemed alert and with it. Review of Systems General: Night Sweats HEENT: Visual Changes Pulmonary: Dyspnea Cardiovascular: Chest Pain Gastrointestinal: No: Nausea, Vomiting, Abdominal Pain, Diarrhea, Constipation Musculoskeletal: No: neck pain, shoulder pain, arm pain, back pain, hand pain, leg pain, foot pain Neurological: No: Weakness, Numbness, Change in speech, Confusion, Seizures, Other Objective Exam Last Set of Vital Signs Vital Signs Date Time Temp Pulse Resp B/P (MAP) Pulse Ox O2 Delivery O2 Flow Rate FiO2 10/02/20 15:27 36.4 97 139/73 (95) 93 Room Air 10/02/20 12:19 28 1.50 Capillary Refill : Less Than 3 Seconds I&O Intake and Output 10/02/20 00:00 Intake Total 1560 ml Output Total 1700 ml Balance -140 ml Intake Oral 1560 ml Output Urine Total 1700 ml # Voids 1 # Bowel Movements 2 Daily Weight Change No General: Alert, Oriented X3, Cooperative HEENT: Atraumatic, PERRLA, EOMI, Mucous Memb Moist/[place] Neck: Supple, No Thyromegaly Lungs: Other (moderate crackles in LLL) Heart: Regular Rate, Normal S1, Normal S2, No Murmurs Extremities: Normal Pulses Skin: Other Neuro: Normal Speech, Strength at 5/5 X4 Ext, Sensation Intact, Cranial Nerves 3-12 NL Psych/Mental Status: Mental Status NL Results/Procedures Lab Laboratory Tests 10/02/20 05:05: White Blood Count 8.0, Red Blood Count 4.21L, Hemoglobin 12.9L, Hematocrit 39L, Mean Corpuscular Volume 91, Mean Corpuscular Hemoglobin 31, Mean Corpuscular Hemoglobin Concent 34, Red Cell Distribution Width 13.0, Platelet Count 188, Mean Platelet Volume 9.3, Immature Granulocyte % (Auto) 1, Neutrophils (%) (Auto) 72, Lymphocytes (%) (Auto) 10L, Monocytes (%) (Auto) 13H, Eosinophils (%) (Auto) 4, Basophils (%) (Auto) 0, Neutrophils # (Auto) 5.7, Lymphocytes # (Auto) 0.8L, Monocytes # (Auto) 1.0, Eosinophils # (Auto) 0.4H, Basophils # (Auto) 0.0, Immature Granulocyte # (Auto) 0.1, Prothrombin Time 33.0H, INR Comment 3.2H, Sodium Level 133L, Potassium Level 4.0, Chloride Level 97L, Carbon Dioxide Level 26, Anion Gap 10, Blood Urea Nitrogen 15, Creatinine 1.02, Estimat Glomerular Filtration Rate 70, BUN/Creatinine Ratio 15, Glucose Level 104, Calcium Level 8.9, Corrected Calcium 9.5, Total Bilirubin 0.6, Aspartate Amino Transf (AST/SGOT) 20, Alanine Aminotransferase (ALT/SGPT) 16, Alkaline Phosphatase 83, Total Protein 6.5, Albumin 3.2, Triglycerides Level 52, Cholesterol Level 98, LDL Cholesterol Direct 42, VLDL Cholesterol 10, HDL Cholesterol 40 Assessment/Plan Assessment/Plan Admission Dx Heart Failure Assessment & Plan Heart Failure -Echo was performed this morning to look into heart function. Results showed a grade 1 diastolic dysfunction as well as aortic valve regurgitation. -Consult cardiology to assess if pt. is a candidate for valve replacement. consider Beta denise to help heart function in meantim. A Fib -Pt. has history of A fib for which he has a pacemaker and is on warfarin. - Continue his current regimen Clinical Quality Measures AMI/AHF: ASA po Prior to arrival: ALLAN Moreno MD 10/02/20 9615: Assessment/Plan Assessment/Plan (1) Chest pain Status: Acute Assessment & Plan: Troponin negative. Appreciate Cardiology recommendations. (2) Acute diastolic congestive heart failure Status: Acute Assessment & Plan: Appreciate Cardiology recommendations. Echo 10/02 with grade 1 diastolic dysfunction, normal EF. Continuing diuresis. (3) Sick sinus syndrome (4) Cardiac pacemaker in situ (5) Mixed hyperlipidemia (6) Aortic regurgitation Assessment & Plan: Not significant per echo report, appreciate Cardiology recommendations. (7) Atrial fibrillation Status: Chronic Assessment & Plan: Resume home meds. (8) DVT prophylaxis Status: Acute Assessment & Plan: On coumadin. Supervisory-Addendum Brief Verification & Attestation Participated in pt care: history, MDM, physical Personally performed: exam, history, MDM Care discussed with: Medical Student Procedures: n/a I personally saw and examined patient today and my findings match those documented by the medical student. See problem list for my assessment and plan. JOON LESLIE Oct 02, 2020 19:52 ALLAN METZGER MD Oct 02, 2020 21:57
[2020-10-02 20:00] VITALS: BP 126/75
[2020-10-02] MEDS: ACETAMINOPHEN 500 MG TAB (TYLENOL) PO SCH (20:23)
[2020-10-02] MEDS: warFARin 2.5 MG (COUMADIN) TAB PO SCH (20:28)
[2020-10-03] VITALS (7 sets, daily range): BP systolic 114–145; BP diastolic 55–74
[2020-10-03] MEDS: MULTIVIT W/MINERALS TAB (THERAGRAN M) PO SCH (05:53)
[2020-10-03 05:54] LABS: HEMATOCRIT 38 % (40-54); HEMOGLOBIN 12.6 g/dL (13.3-17.7); MEAN CORPUSCULAR HEMOGLOBIN 31 pg (25-34); MEAN CORPUSCULAR HGB CONC 34 g/dL (32-36); MEAN CORPUSCULAR VOLUME 92 fL (80-99); MEAN PLATELET VOLUME 9.4 fL (9.0-12.2); PLATELET COUNT 199 10^3/uL (130-400)
[2020-10-03] MEDS: CATHETER FLUSH 10 ML SYR IV SCH ×3 (05:54→22:30)
[2020-10-03 06:09] LABS: INR 3.2 (0.8-1.4); PROTHROMBIN TIME PATIENT 33.2 SEC (12.2-14.7)
[2020-10-03 06:10] LABS: POTASSIUM 3.8 MMOL/L (3.6-5.0)
[2020-10-03 06:12] LABS: CALCIUM 8.5 MG/DL (8.5-10.1)
[2020-10-03 06:16] LABS: CREATININE SERUM 1.22 MG/DL (0.60-1.30)
[2020-10-03] MEDS: RT-ALBUTEROL SULF 2.5 MG/3 ML PRE-MIX VIAL INH SCH (07:51)
--- NOTE | 2020-10-03 07:59 | Progress Note ---
JOON LESLIE 10/03/20 0759: Subjective Subjective/Events-last exam Alphonse Perdomo is an 84 year old male in the hospital with chest pain of 2 weeks duration. Patient feels better today than yesterday and reports the chest pain is primarily when moving versus when at rest. chest pain is 3/10 when present, down from 5/10 yesterday. He is currently on 1.5 L O2 and statting at 96% O2. He is wondering if he will be able to get off the O2 before he goes home. Review of Systems General: No Chills, No Night Sweats; Appetite (good) HEENT: No Head Aches Pulmonary: No Dyspnea, No Cough Cardiovascular: Chest Pain (pain has changed to 3/10 and primarily when moving); No: Palpitations, Edema Gastrointestinal: No: Nausea, Vomiting, Abdominal Pain, Constipation Genitourinary: No Dysuria, No Incontinence, No Retention Musculoskeletal: No: neck pain, shoulder pain, arm pain, back pain, hand pain, leg pain, foot pain Neurological: No: Numbness, Confusion Objective Exam Last Set of Vital Signs Vital Signs Date Time Temp Pulse Resp B/P (MAP) Pulse Ox O2 Delivery O2 Flow Rate FiO2 10/03/20 07:00 65 10/03/20 03:31 36.1 16 114/55 (74) 96 Nasal Cannula 1.50 Capillary Refill : Less Than 3 Seconds I&O Intake and Output 10/03/20 00:00 Intake Total 2460 ml Balance 2460 ml Intake Oral 2460 ml # Voids 9 # Bowel Movements 2 General: Alert, Oriented X3, Cooperative HEENT: Atraumatic, PERRLA, EOMI, Mucous Memb Moist/[place] Lungs: Other (Crackles in both Lower lobes) Heart: Regular Rate Abdomen: Normal Bowel Sounds, Other (Colostomy present, no redness, swelling or iritation in the area.) Extremities: No Cyanosis, No Edema, Normal Pulses, No Tenderness/Swelling Skin: No Breakdown Neuro: Normal Speech, Cranial Nerves 3-12 NL Psych/Mental Status: Mental Status NL Results/Procedures Lab Laboratory Tests 10/03/20 05:03: White Blood Count 9.0, Red Blood Count 4.08L, Hemoglobin 12.6L, Hematocrit 38L, Mean Corpuscular Volume 92, Mean Corpuscular Hemoglobin 31, Mean Corpuscular Hemoglobin Concent 34, Red Cell Distribution Width 12.8, Platelet Count 199, Mean Platelet Volume 9.4, Prothrombin Time 33.2H, INR Comment 3.2H, Sodium Level 129L, Potassium Level 3.8, Chloride Level 94L, Carbon Dioxide Level 24, Anion Gap 11, Blood Urea Nitrogen 22H, Creatinine 1.22, Estimat Glomerular Filtration Rate 57, BUN/Creatinine Ratio 18, Glucose Level 101, Calcium Level 8.5 Assessment/Plan Assessment/Plan Assessment & Plan Heart Failure with preserved ejection fraction -continue Lasix and consider switching to sacubitril/Valsartan combination upon discharge for management of symptoms. -Get patient moving and exercising again as tolerating. A Fib -Pt. has history of A fib for which he has a pacemaker and is on warfarin, Digoxin, and Dronedarone. -Patients INR is mildly high (3.2) but we are unconcerned about it at this time and no dosing adjustment is necessary. Hypervolemic Hyponatremia -Continue Lasix injections to remove excess fluid. -Follow lab value and see if Sodium returns to normal values. Normocytic Anemia -appears minor at this time. Could be due an anemia of chronic disease due to the newly found heart failure.. -Follow for now and address if it acutely worsens. Clinical Quality Measures AMI/AHF: ASA po Prior to arrival: ALLAN Moreno MD 10/03/20 0805: Assessment/Plan Assessment/Plan (1) Chest pain Status: Acute Assessment & Plan: Troponin negative. Appreciate Cardiology recommendations. (2) Acute diastolic congestive heart failure Status: Acute Assessment & Plan: Appreciate Cardiology recommendations. Echo 10/02 with grade 1 diastolic dysfunction, normal EF. Continuing diuresis. Still significantly short of breath with activity, continue PT and advancing activity as tolerated. (3) Sick sinus syndrome (4) Cardiac pacemaker in situ (5) Mixed hyperlipidemia (6) Aortic regurgitation Assessment & Plan: Not significant per echo report, appreciate Cardiology recommendations. (7) Atrial fibrillation Status: Chronic Assessment & Plan: Resume home meds. (8) DVT prophylaxis Status: Acute Assessment & Plan: On coumadin. Supervisory-Addendum Brief Verification & Attestation Participated in pt care: history, MDM, physical Personally performed: exam, history, MDM Care discussed with: Medical Student Procedures: n/a I personally saw and examined this patient and did my own history and exam and agree with documentation by medical student. See problem list for my assessment and plan. JOON LESLIE Oct 03, 2020 07:59 ALLAN METZGER MD Oct 03, 2020 08:05
[2020-10-03] MEDS: TAMSULOSIN 0.4 MG (FLOMAX) CAP PO SCH ×2 (08:26→20:29)
[2020-10-03] MEDS: ARTIFICAL TEARS 0.4 ML UNIT DOSE (REFRESH PLUS) OU SCH ×2 (08:26→20:28)
[2020-10-03] MEDS: FLUTICASONE NASAL SPRAY (FLONASE) 16 GM BTL NS SCH (08:26)
[2020-10-03] MEDS: DIGOXIN 0.125 MG (LANOXIN) TAB PO SCH (08:26)
[2020-10-03] MEDS: MAGNESIUM OXIDE (MAG-OX)400 MG TAB PO SCH ×2 (08:26→20:27)
[2020-10-03] MEDS: DRONEDARONE TABLET 400 MG TABLET PO SCH ×2 (08:26→20:27)
[2020-10-03] MEDS: FUROSEMIDE 40 MG/4 ML INJ (LASIX) IVP SCH (08:26)
--- NOTE | 2020-10-03 09:20 | Diagnostic Imaging Report ---
EXAMINATION: Chest 2 view HISTORY: 10/01/2020 COMPARISON: None available. FINDINGS: Heart size and pulmonary vasculature are normal. Stable mild interstitial opacities within the mid and lower lungs. No pleural effusion or pneumothorax. The osseous structures are intact. Left-sided cardiac device is unchanged. IMPRESSION: 1. Stable mild interstitial opacities in the mid and lower lungs. Dictated by: Dictated on workstation # [id number]
--- NOTE | 2020-10-03 09:58 | Physical Therapy Evaluation ---
PT Evaluation-General Medical Diagnosis Admission Date Oct 01, 2020 at 10:34 Medical Diagnosis: SOB/CP/CHF Onset Date: Oct 01, 2020 Therapy Diagnosis Therapy Diagnosis: debility Precautions Precautions/Isolations: Standard Precautions Referral Physician: Malcolm Medical History Pertinent Medical History: Atrial Fib, CAD, Dementia, HTN Current History ER secondary to CP with exertion Reviewed History: Yes Social History Home: Single Level Current Living Status: Alone Entry Into Home: Stairs Without Railing PT Steps Into Home: 3 Prior Prior Level of Function SCALE: Activities may be completed with or without assistive devices. 8-[id number] completes the activity by him/herself with no assistance from a helper. 5-Set-up or Clean-up Assistance-helper sets up or cleans up; patient completes activity. [place] assists only prior to or following the activity. 4-Supervision or Touching Assistance-helper provides verbal cues and/or touching/steadying and/or contact guard assistance as patient completes activity. Assistance may be provided throughout the activity or intermittently. 3-Partial/Moderate Assistance-helper does LESS THAN HALF the effort. [place] lifts, holds or supports trunk or limbs, but provides less than half the effort. 2-Substantial/Maximal Assistance-helper does MORE THAN HALF the effort. [place] lifts or holds trunk or limbs and provides more than half the effort. 5-Blmbtdeie-lsgtvn does ALL the effort. Patient does none of the effort to complete the activity. Or, the assistance of 2 or more helpers is required for the patient to complete the activity. If activity was not attempted, code reason: 7-Patient Refused. 9-Not Applicable-not attempted and the patient did not perform the activity before the current illness, exacerbation or injury. 10-Not Attempted due to Environmental Limitations-(lack of equipment, weather restraints, etc.). 88-Not Attempted due to Medical Conditions or Safety Concerns. Bed Mobility: 6 Transfers (B,C,W/C): 6 Gait: 6 Stairs: 6 Indoor Mobility (Ambulation): Independent Stairs: Independent Prior Devices Use: None PT Evaluation-Current Subjective Patient agrees to PT. RT present with breathing treatment and reports SAO2 at rest on RA is 92%. Objective Patient Orientation: Person, Time, Situation ROM/Strength ROM Lower Extremities bilateral LE WFL Strength Lower Extremities 4/5 grossly bilateral LE Integumentary/Posture Bowel Incontinence: No Bladder Incontinence: No Posture slightly kyphotic Neuromuscular (Tone, Coordination, Reflexes) grossly intact Sensory Vision: Functional Hearing: Impaired Sensation Right Lower Extremit: Intact Sensation Left Lower Extremity: Intact Transfers Roll Left to Right (QC): 6 Sit to Lying (QC): 6 Lying to Sitting/Side of Bed(Q: 6 Sit to Stand (QC): 4 Chair/Ljr-vc-Spbxh Xfer(QC): 4 Gait Does the Patient Walk?: Yes Mode of Locomotion: Walk Anticipated Mode of Locomotion: Walk Walk 10 feet (QC): 4 (SBA) Walk 50 ft with 2 Turns(QC): 4 (SBA) Walk 150 ft (QC): 4 (SBA) Distance: 175' Gait Assistive Device: FWW Comments/Gait Description increase SOA with ambulation with FWW for energy conservation Balance Sitting Static: Normal Sitting Dynamic: Normal Standing Static: Good Standing Dynamic: Good Treatment SAO2 decreases to 83% RA with activity. RT notified and 2L O2 placed on patient with recovery to 92%. Assessment/Needs 84 y.o. male, will be seen by skilled PT to address functional mobility and pulmonary function with mobility. Rehab Potential: Fair PT Java Architect Goals Java Architect Goals PT Java Architect Goals Time Frame: Oct 07, 2020 Roll Left & Right (QC): 6 Sit to Lying (QC): 6 Lying-Sitting on Side/Bed(QC): 6 Sit to Stand (QC): 6 Chair/Hqw-hm-Uafen Xfer(QC): 6 Toilet Transfer (QC): 6 Does the Patient Walk: Yes Walk 10 feet (QC): 6 Walk 50ft with 2 Turns (QC): 6 Walk 150 ft (QC): 6 PT Plan Problem List Problem List: Activity Tolerance, Gait, Transfer Treatment/Plan Treatment Plan: Continue Plan of Care Treatment Plan: Bed Mobility, Education, Functional Activity Ramon, Functional Strength, Gait, Safety, Therapeutic Exercise, Transfers Treatment Duration: Oct 07, 2020 Frequency: 5 times per week Estimated Hrs Per Day: .25 hour per day Patient and/or Family Agrees t: Yes Time/GCodes Time In: 750 Time Out: 808 Total Billed Treatment Time: 18 Total Billed Treatment 1 visit EVMod 18 min GIANCARLO SHERMAN PT Oct 03, 2020 09:58
--- NOTE | 2020-10-03 17:24 | Cardiology Progress Note ---
Progress Note-Cardiology Events since last exam Date Seen by Provider: Oct 03, 2020 Time Seen by Provider: 17:21 Events since last exam I am seeing him due to heart failure. He feels like his breathing is improved. However, this afternoon he stood up from his chair and felt very dizzy. He had to get his walker and sit back down. His chest felt tight for short while after he sat back down. When I saw him, he felt as though he was back to normal and denied any chest discomfort or dizziness. He denies syncope. He denies palpitations or lower extremity edema. Certain portions of this document may have been dictated utilizing voice recognition technology. Inherent to this technology, typographical and grammatical errors may exist. As much as I am diligent to identify and correct these mistakes, some errors may remain in the document. Vitals Last set of Vitals Signs Vital Signs 10/03/20 16:07 Temp 36.0 Pulse 94 Resp 18 B/P (MAP) 126/72 (90) Pulse Ox 96 O2 Delivery Nasal Cannula O2 Flow Rate 1.50 Labs Labs Laboratory Tests 10/03/20 05:03 Exam Vital Signs Vital Signs Date Time Temp Pulse Resp B/P (MAP) Pulse Ox O2 Delivery O2 Flow Rate FiO2 10/03/20 16:07 36.0 94 18 126/72 (90) 96 Nasal Cannula 1.50 Physical Exam General: Alert. No acute distress. Eye: No xanthelasma. HENT: Normocephalic. Neck: Jugular venous pressure does not appear elevated. Respiratory: Lungs are clear to auscultation. Respirations are non-labored. Breath sounds are equal. Symmetrical chest wall expansion. Cardiovascular: Normal rate. Regular rhythm. No murmur. No gallop. No edema. Gastrointestinal: Soft. Normal bowel sounds. Skin: Warm. Dry. Neurologic: Alert and oriented to person, place, time. Cranial nerves 3-11 grossly intact. Psychiatric: Cooperative. Appropriate mood & affect. Labs Laboratory Tests Test 10/03/20 05:03 Range/Units White Blood Count 9.0 4.3-11.0 10^3/uL Red Blood Count 4.08 L 4.30-5.52 10^6/uL Hemoglobin 12.6 L 13.3-17.7 g/dL Hematocrit 38 L 40-54 % Mean Corpuscular Volume 92 80-99 fL Mean Corpuscular Hemoglobin 31 25-34 pg Mean Corpuscular Hemoglobin Concent 34 32-36 g/dL Red Cell Distribution Width 12.8 10.0-14.5 % Platelet Count 199 130-400 10^3/uL Mean Platelet Volume 9.4 9.0-12.2 fL Prothrombin Time 33.2 H 12.2-14.7 SEC INR Comment 3.2 H 0.8-1.4 Sodium Level 129 L 135-145 MMOL/L Potassium Level 3.8 3.6-5.0 MMOL/L Chloride Level 94 L 98-107 MMOL/L Carbon Dioxide Level 24 21-32 MMOL/L Anion Gap 11 5-14 MMOL/L Blood Urea Nitrogen 22 H 7-18 MG/DL Creatinine 1.22 0.60-1.30 MG/DL Estimat Glomerular Filtration Rate 57 BUN/Creatinine Ratio 18 Glucose Level 101 70-105 MG/DL Calcium Level 8.5 8.5-10.1 MG/DL Diagnosis/Problems Diagnosis/Problems (1) Acute diastolic congestive heart failure Status: Acute Assessment & Plan: His echocardiogram showed a normal ejection fraction with no significant valvular heart disease. He does have grade 1 diastolic dysfunction. From his family's description, he probably eats food that is high in sodium. This may have contributed to his congestive heart failure. Symptomatically he is somewhat improved but not quite back to baseline. His chest x-ray from this morning looked similar to admission. I suggest we continue with the IV Lasix. He may be ready for discharge tomorrow. I am not quite sure what to make of his dizzy episode. (2) Aortic regurgitation Assessment & Plan: This was an incidental finding on his echocardiogram. This is in the mild range and should not be contributing to his symptoms. This will need to be followed longitudinally by his regular fish worm grower at the outside facility. (3) Paroxysmal atrial fibrillation Assessment & Plan: No signs of recurrent atrial fibrillation during this admission. He takes warfarin for stroke prophylaxis. He is not on any AV kwan blocking agents. (4) Sick sinus syndrome Assessment & Plan: He has a permanent pacemaker that appears to be functioning normally. (5) Cardiac pacemaker in situ Assessment & Plan: He follows with an outside fish worm grower for his routine pacemaker checks. I do not see any strong indication for a pacemaker check while he is here in the hospital. (6) Mixed hyperlipidemia Assessment & Plan: Continue atorvastatin. PATRICIA LOWE JR, MD Oct 03, 2020 17:24
[2020-10-03] MEDS: ACETAMINOPHEN 500 MG TAB (TYLENOL) PO SCH (20:27)
[2020-10-03] MEDS: warFARin 2.5 MG (COUMADIN) TAB PO SCH (20:27)
[2020-10-04] VITALS: BP 117/65
[2020-10-04 04:00] VITALS: BP 144/77
[2020-10-04 05:08] LABS: HEMATOCRIT 36 % (40-54); HEMOGLOBIN 12.2 g/dL (13.3-17.7); MEAN CORPUSCULAR HEMOGLOBIN 31 pg (25-34); MEAN CORPUSCULAR HGB CONC 34 g/dL (32-36); MEAN CORPUSCULAR VOLUME 92 fL (80-99); MEAN PLATELET VOLUME 8.9 fL (9.0-12.2); PLATELET COUNT 205 10^3/uL (130-400); WHITE BLOOD COUNT 7.5 10^3/uL (4.3-11.0)
[2020-10-04 05:21] LABS: POTASSIUM 4.4 MMOL/L (3.6-5.0)
[2020-10-04 05:22] LABS: CALCIUM 8.5 MG/DL (8.5-10.1)
[2020-10-04 05:27] LABS: CREATININE SERUM 1.25 MG/DL (0.60-1.30)
[2020-10-04] MEDS: CATHETER FLUSH 10 ML SYR IV SCH ×2 (05:54→08:50)
[2020-10-04] MEDS: MULTIVIT W/MINERALS TAB (THERAGRAN M) PO SCH (05:54)
[2020-10-04] MEDS: RT-ALBUTEROL SULF 2.5 MG/3 ML PRE-MIX VIAL INH SCH (07:23)
[2020-10-04 08:00] VITALS: BP 134/68
[2020-10-04] MEDS: MAGNESIUM OXIDE (MAG-OX)400 MG TAB PO SCH (08:49)
[2020-10-04] MEDS: FUROSEMIDE 40 MG/4 ML INJ (LASIX) IVP SCH (08:49)
[2020-10-04] MEDS: DIGOXIN 0.125 MG (LANOXIN) TAB PO SCH (08:49)
[2020-10-04] MEDS: FLUTICASONE NASAL SPRAY (FLONASE) 16 GM BTL NS SCH (08:49)
[2020-10-04] MEDS: DRONEDARONE TABLET 400 MG TABLET PO SCH (08:49)
[2020-10-04] MEDS: TAMSULOSIN 0.4 MG (FLOMAX) CAP PO SCH (08:49)
[2020-10-04] MEDS: ARTIFICAL TEARS 0.4 ML UNIT DOSE (REFRESH PLUS) OU SCH (08:49)
--- NOTE | 2020-10-04 09:26 | Cardiology Progress Note ---
Progress Note-Cardiology Events since last exam Date Seen by Provider: Oct 04, 2020 Time Seen by Provider: 09:24 Events since last exam I am seeing him due to heart failure. He denies any further dizzy spells. His breathing is improved. He denies chest pain, palpitations, syncope or ankle edema. Vitals Last set of Vitals Signs Vital Signs 10/04/20 13:45 Temp 36.2 Pulse 80 Resp 18 B/P (MAP) 120/64 Pulse Ox 94 O2 Delivery Nasal Cannula O2 Flow Rate 2.00 Labs Labs Laboratory Tests 10/04/20 05:00 Exam Vital Signs Vital Signs Date Time Temp Pulse Resp B/P (MAP) Pulse Ox O2 Delivery O2 Flow Rate FiO2 10/04/20 13:45 36.2 80 18 120/64 94 Nasal Cannula 2.00 Physical Exam General: Alert. No acute distress. Eye: No xanthelasma. HENT: Normocephalic. Neck: Jugular venous pressure does not appear elevated. Respiratory: Slight rhonchi at right base. Respirations are non-labored. Breath sounds are equal. Symmetrical chest wall expansion. Cardiovascular: Normal rate. Regular rhythm. No murmur. No gallop. No edema. Gastrointestinal: Soft. Normal bowel sounds. Skin: Warm. Dry. Neurologic: Alert and oriented to person, place, time. Cranial nerves 3-11 grossly intact. Psychiatric: Cooperative. Appropriate mood & affect. Labs Laboratory Tests Test 10/03/20 23:24 10/04/20 05:00 Range/Units Glucometer 115 H 70-110 MG/DL White Blood Count 7.5 4.3-11.0 10^3/uL Red Blood Count 3.95 L 4.30-5.52 10^6/uL Hemoglobin 12.2 L 13.3-17.7 g/dL Hematocrit 36 L 40-54 % Mean Corpuscular Volume 92 80-99 fL Mean Corpuscular Hemoglobin 31 25-34 pg Mean Corpuscular Hemoglobin Concent 34 32-36 g/dL Red Cell Distribution Width 12.6 10.0-14.5 % Platelet Count 205 130-400 10^3/uL Mean Platelet Volume 8.9 L 9.0-12.2 fL Sodium Level 131 L 135-145 MMOL/L Potassium Level 4.4 3.6-5.0 MMOL/L Chloride Level 95 L 98-107 MMOL/L Carbon Dioxide Level 27 21-32 MMOL/L Anion Gap 9 5-14 MMOL/L Blood Urea Nitrogen 25 H 7-18 MG/DL Creatinine 1.25 0.60-1.30 MG/DL Estimat Glomerular Filtration Rate 55 BUN/Creatinine Ratio 20 Glucose Level 102 70-105 MG/DL Calcium Level 8.5 8.5-10.1 MG/DL Diagnosis/Problems Diagnosis/Problems (1) Acute diastolic congestive heart failure Status: Acute Assessment & Plan: His echocardiogram showed a normal ejection fraction with no significant valvular heart disease. He does have grade 1 diastolic dysfunction. From his family's description, he probably eats food that is high in sodium. This may have contributed to his congestive heart failure. He seems to be much improved today. From a cardiac standpoint he can probably be discharged home. I would recommend sending him with furosemide 20 mg once a day. He should follow-up with his regular bi technical lead in [place] within 1 week. (2) Aortic regurgitation Assessment & Plan: This was an incidental finding on his echocardiogram. This is in the mild range and should not be contributing to his symptoms. This will need to be followed longitudinally by his regular bi technical lead after discharge. (3) Paroxysmal atrial fibrillation Assessment & Plan: No signs of recurrent atrial fibrillation during this admission. He takes warfarin for stroke prophylaxis. He is not on any AV kwan blocking agents. (4) Sick sinus syndrome Assessment & Plan: He has a permanent pacemaker that appears to be functioning normally. (5) Cardiac pacemaker in situ Assessment & Plan: He follows with an outside bi technical lead for his routine pacemaker checks. I do not see any strong indication for a pacemaker check while he is here in the hospital. (6) Mixed hyperlipidemia Assessment & Plan: Continue atorvastatin. PATRICIA LOWE JR, MD Oct 04, 2020 09:26
--- NOTE | 2020-10-04 10:43 | Physical Therapy Daily Note ---
PT Daily Note-Current Subjective Patient sitting in chair with family present upon PT arrival, agreeable to treatment. Daughter reports "They have been trying to ween him from O2 and he was able to walk to the desk without oxygen before his sats dropped and then they put O2 back on him." Mental Status Patient Orientation: Person, Place, Situation Transfers SCALE: Activities may be completed with or without assistive devices. 7-Llrsmehnpj-saanqct completes the activity by him/herself with no assistance from a helper. 5-Set-up or Clean-up Assistance-helper sets up or cleans up; patient completes activity. [place] assists only prior to or following the activity. 4-Supervision or Touching Assistance-helper provides verbal cues and/or touching/steadying and/or contact guard assistance as patient completes activity. Assistance may be provided throughout the activity or intermittently. 3-Partial/Moderate Assistance-helper does LESS THAN HALF the effort. [place] lifts, holds or supports trunk or limbs, but provides less than half the effort. 2-Substantial/Maximal Assistance-helper does MORE THAN HALF the effort. [place] lifts or holds trunk or limbs and provides more than half the effort. 3-Hghjddbhe-ayuscv does ALL the effort. Patient does none of the effort to complete the activity. Or, the assistance of 2 or more helpers is required for the patient to complete the activity. If activity was not attempted, code reason: 7-Patient Refused. 9-Not Applicable-not attempted and the patient did not perform the activity before the current illness, exacerbation or injury. 10-Not Attempted due to Environmental Limitations-(lack of equipment, weather restraints, etc.). 88-Not Attempted due to Medical Conditions or Safety Concerns. Sit to Stand (QC): 5 Chair/Exg-be-Whmsf Xfer(QC): 5 Toilet Transfer (QC): 5 Gait Training Does the Patient Walk?: Yes Distance: 175 feet Walk 10 feet (QC): 5 Walk 50 ft with 2 Turns(QC): 5 Walk 150 ft (QC): 5 Gait Persons Needed: 1 Gait Assistive Device: FWW Exercises Seated Therapy Exercises: Ankle pumps, Long arc quads, Hip flexion, Hamstring Curls, Hip abd/add Seated Reps: 20 Assessment Current Status: Good Progress Patient tolerated treatment well with less decline in O2 initially. Without O2 donned he was able to maintain 89-91% during ambulation for ~110 feet. However at that time his O2 saturation decreased rapidly to 82%. With 3 standing rest breaks and verbal cues for deep breathing, patient was able to increase his O2 saturation to 88% while ambulating back to room. Upon replacing 2L O2, oxygen sats increased to 92% upon PT departure. Patient in chair post treatment with family in the room, all needs met, nurse notified of all events and call light in reach. PT Options Advisor Goals Options Advisor Goals PT Options Advisor Goals Time Frame: Oct 07, 2020 Roll Left & Right (QC): 6 Sit to Lying (QC): 6 Lying-Sitting on Side/Bed(QC): 6 Sit to Stand (QC): 6 Chair/Qda-gf-Allyu Xfer(QC): 6 Toilet Transfer (QC): 6 Does the Patient Walk: Yes Walk 10 feet (QC): 6 Walk 50ft with 2 Turns (QC): 6 Walk 150 ft (QC): 6 PT Plan Treatment/Plan Treatment Plan: Continue Plan of Care Treatment Plan: Bed Mobility, Education, Functional Activity Ramon, Functional Strength, Gait, Safety, Therapeutic Exercise, Transfers Treatment Duration: Oct 07, 2020 Frequency: 5 times per week Estimated Hrs Per Day: .25 hour per day Patient and/or Family Agrees t: Yes Safety Risks/Education Patient Education: Gait Training, Reviewed Precautions, Safety Issues Teaching Recipient: Patient, Family Teaching Methods: Demonstration, Discussion Response to Teaching: Verbalize Understanding, Return Demonstration Time/GCodes Time In: 0955 Time Out: 1020 Total Billed Treatment Time: 25 Total Billed Treatment Visit, hailey, GABBY Pulido PT Oct 04, 2020 10:43
[2020-10-04 12:00] VITALS: BP 120/64
--- NOTE | 2020-10-04 12:58 | Discharge Summary ---
Discharge Summary Instructions for Patient Assessment/Instructions Follow up with Dr. Wilder on 10/11 at 10:45 am Follow up with your Machining And Assembly Supervisor in the next week. Physician to follow Patient: Dr. Wilder Discharge Diet for Home: Cardiac Diet, Coumadin Patient Diet Hospital Course Date of Admission: Oct 01, 2020 at 10:34 Admission Diagnosis : Family Physician/Provider: Kang Wilder MD Date of Discharge: 10/04/20 Discharge Diagnosis: See problem list Hospital Course: Pt admitted with chest pain and weakness and had negative troponins, Cardiology consulted and he was diagnosed with heart failure with preserved ejection fraction and had improvement of symptoms with IV lasix. He still required 2 lpm supplemental oxygen with activity on d/c and was continued on small oral dose of lasix until he could follow up with his primary Machining And Assembly Supervisor. He did well with PT and was discharged with home health to continue PT for his weakness. His home meds were continued for his a fib. He did have hyponatremia which was suspected to be due to hypervolemia/CHF. Labs and Pending Lab Test: Laboratory Tests 10/03/20 23:24: Glucometer 115H 10/04/20 05:00: White Blood Count 7.5, Red Blood Count 3.95L, Hemoglobin 12.2L, Hematocrit 36L, Mean Corpuscular Volume 92, Mean Corpuscular Hemoglobin 31, Mean Corpuscular Hemoglobin Concent 34, Red Cell Distribution Width 12.6, Platelet Count 205, Mean Platelet Volume 8.9L, Sodium Level 131L, Potassium Level 4.4, Chloride Level 95L, Carbon Dioxide Level 27, Anion Gap 9, Blood Urea Nitrogen 25H, Creatinine 1.25, Estimat Glomerular Filtration Rate 55, BUN/Creatinine Ratio 20, Glucose Level 102, Calcium Level 8.5 Home Meds Active Reported Refresh Tears (Carboxymethylcellulose Sodium) 15 Ml Drops 1 Drop OU DAILY PRN Nitroglycerin 0.4 Mg Tab.subl 0.4 Mg PO UD PRN Jantoven (Warfarin Sodium) 2.5 Mg Tablet 5 Mg PO HS TAKES 2 (2.5MG) TABLETS Magnesium Oxide 400 Mg Tablet 400 Mg PO BID Ventolin Hfa (Albuterol Sulfate) 1 Puff Puff 2 Puff INH Q4H PRN Acetaminophen 500 Mg Tablet 500 Mg PO HS Multaq (Dronedarone HCl) 400 Mg Tablet 400 Mg PO BID Digitek (Digoxin) 125 Mcg Tablet 125 Mcg PO DAILY Ocuvite Adult 50 Plus Softgel (C,E,Zinc,Copper 11/Cxjkm2t/Lut) 1 Each Capsule 1 Each PO DAILY Flomax (Tamsulosin HCl) 0.4 Mg Cap 0.4 Mg PO BID Atorvastatin Calcium 20 Mg Tablet 20 Mg PO HS Restasis (Cyclosporine) 1 Each Droperette 1 Drop OU BID Fluticasone Propionate 15.8 Ml Phil Campbell.susp 1 Phil Campbell NS DAILY Patient Allergies: Coded Allergies: Sulfa (Sulfonamide Antibiotics) (Verified Allergy, Unknown, 10/01/20) Home Health Need/Face to Face Date of Face to Face: Oct 04, 2020 Clinical Findings: Generalized weakness and fatigue, Shortness of breath I have seen Pt phak-kx-yeda: Yes Discharged To: Home Diagnosis/Conditions: See problem list Problems/Diagnosis/Condition: (1) Atrial fibrillation (2) Sick sinus syndrome (3) Cardiac pacemaker in situ (4) Mixed hyperlipidemia (5) Acute diastolic congestive heart failure (6) Aortic regurgitation Patient is Homebound due to: Muscle weakness, Shortness of breath/distress Homebound Status Due to the above stated illness, injury or surgical procedure (medical condition or diagnosis) and associated clinical findings, the patient is homebound because of his/her inability to leave home except with aid of a supportive device and/or person AND leaving the home requires a considerable and taxing effort or is medically contraindicated. Pt req the following assistanc: Aid of another person Home Health Nursing Orders Home Health Services Order: Nursing Services, Physical Therapy-Evaluate & Treat Home Health Infusion Therapy Line Start Date: Oct 01, 2020 Certify Stmt I certify that this patient is under my care and that I, a nurse practitioner or a physician; a merchandising assistant working with me, had a face to face encounter that - meets the physician face to face encounter requirements with this patient as dated. Discharge Physical Exam General: Alert, No Acute Distress Lungs: Other (faint basilar rales) Heart: Regular Rate, No Murmurs Neuro: Normal Speech Psych/Mental Status: Mood ALLAN LIZAMA MD Oct 04, 2020 12:58
[2020-10-04] MEDS ORDERED: FURO-125 PO (13:04)
[2020-10-04 13:45] VITALS: BP 120/64
--- NOTE | 2020-10-04 15:31 | Physician Query Clarification ---
Physician Query-General Query to Physician: The medical record reflects the following clinical scenario: The patient, in the setting of History/Risk factors, Acute Diastolic Heart Failure, Chest pain, not on home 02 previously Clinical Findings 02 sat 92% on 2L, (P/F=65/.94=519) 02 Sats on RA 83% P/F = (223) when ambulating, SOB, RR 18 to 28, Qualified for home 02, Treatment Supplemental 02, Lasix IV, Breathing RX Question: Do you agree with the impression of Acute Hypoxic Respiratory Failure per ER physician Dr Elmer Vu? 1. Yes; will document Acute Hypoxic Respiratory Failure, present on admission in the Progress Notes/Discharge Summary 2. No; will continue current documentation in the Progress Notes 3. Other; will document explanation of clinical findings 4. Clinically undetermined; no explanation for clinical findings Please clarify and document your clinical opinion in the Progress Notes and Discharge Summary including the definitive and/or presumptive diagnosis, (suspected or probable), related to the above clinical findings. Please include clinical findings supporting your diagnosis. In responding to this query, please exercise your independent professional judgment. The purpose of this communication is to more accurately reflect the complexity of your patients condition. The fact that a question is asked does not imply that any particular answer is desired or expected. Please remember a lack of response to the above will prompt a phone page by CDI/coding staff Thank you for timely response to this clarification. Brynn Holland RN Clinical Contract Admin [phone] [email or web address] PHYSICIAN RESPONSE: Based on the clinical findings in the record, please respond to the query above on this document as an addendum. Physician Response: 1 Physician Response yes If you have questions please contact: Roll Plugger: Ext: Thank you for your time and cooperation. Clinical Contract Admin/Roll Plugger This is a permanent part of the medical record BRYNN HOLLAND Oct 04, 2020 15:31 FABRICIO MURILLO DO Oct 04, 2020 21:10 ALLAN METZGER MD Oct 04, 2020 22:27
== END 2020-10-04 13:45 | disposition home health service (06) | DRG 291 ==
LOC: EDUNIT# 06:45 → ER FS 06:50 → 4TH 10:34
PROVIDERS: ADMIT Internal Medicine; ATTEND Family Medicine
DX: I11.0 Hypertensive heart disease with heart failure (principal); I50.31 Acute diastolic (congestive) heart failure; J96.01 Acute respiratory failure with hypoxia; E87.1 Hypo-osmolality and hyponatremia; I48.0 Paroxysmal atrial fibrillation; E78.2 Mixed hyperlipidemia; I25.10 Atherosclerotic heart disease of native coronary artery without angina pectoris; F03.90 Unspecified dementia, unspecified severity, without behavioral disturbance, psychotic disturbance, mood disturbance, and anxiety; D64.9 Anemia, unspecified; I35.1 Nonrheumatic aortic (valve) insufficiency; Z95.5 Presence of coronary angioplasty implant and graft; Z79.01 Long term (current) use of anticoagulants; Z95.0 Presence of cardiac pacemaker; Z79.899 Other long term (current) drug therapy
CPT/HCPCS: 36415; 71045; 71046; 80048; 80053; 80061; 80162; 82947; 83880; 84484; 85007; 85025; 85027; 85610; 93005; 93041; 93306; 94640; 94760; 94761; 96374

== ENCOUNTER 2020-10-07 12:38 | Emergency (ER) | payer MEDICARE, OTHER ==
[~2020-10-07] VITALS: Ht 180 cm; Wt 70.0 kg
[~2020-10-07 12:38] MED LIST: ACET-93 PO; ACET325C7 PO; ALBU1.25 INH; ATOR20TA66 PO; C,E,1CAP PO; CARB15DR OU; CYCL1DRO OU; DIGO-8 PO; DRON400T6 PO; FLUT15.845 NS; FURO-125 PO; MAGN200T8 PO; MAGN400T8 PO; NITR0.4T42 PO; RT-ALBUINH INH; TMSL.4C PO; WARF-48 PO; WARF2.5T8 PO
[2020-10-07 12:40] VITALS: BP 131/66
[2020-10-07 13:00] LABS: BASOPHILS % (AUTO) 0 % (0-10); EOSINOPHILS % (AUTO) 2 % (0-10); HEMATOCRIT 36 % (40-54); HEMOGLOBIN 12.3 g/dL (13.3-17.7); LYMPHOCYTES % (AUTO) 9 % (12-44); MEAN CORPUSCULAR HEMOGLOBIN 31 pg (25-34); MEAN CORPUSCULAR HGB CONC 34 g/dL (32-36); MEAN CORPUSCULAR VOLUME 90 fL (80-99); MEAN PLATELET VOLUME 8.6 fL (9.0-12.2); MONOCYTES % (AUTO) 12 % (0-12); NEUTROPHILS # (AUTO) 6.7 X 10^3 (1.8-7.8); NEUTROPHILS % (AUTO) 76 % (42-75); PLATELET COUNT 296 10^3/uL (130-400); WHITE BLOOD COUNT 8.8 10^3/uL (4.3-11.0)
[2020-10-07 13:01] LABS: EOSINOPHILS # (AUTO) 0.2 10^3/uL (0.0-0.3); LYMPHOCYTES # (AUTO) 0.8 X 10^3 (1.0-4.0)
--- NOTE | 2020-10-07 13:01 | ED General ---
General Chief Complaint: Chest Pain Stated Complaint: SOB; CHEST PAIN; COUGH Source of Information: Patient, Family, Old Records History of Present Illness Date Seen by Provider: Oct 07, 2020 Time Seen by Provider: 12:40 Initial Comments 84-year-old male presenting with complaints of recurrent chest pressure for the last few weeks. He gets pain and shortness of breath with exertion. He was in the hospital this last week at [facility] in [place] for similar symptoms. He is to follow-up with his regular providers and caramel candy maker helper out of [place]. He was started on oxygen as well as Lasix when he was discharged from [facility]. He has had cold fingers and decreased O2 sat with movement checking his saturations with his fingers. Since he continued to complain of chest pressure and pain especially with exertion and they were having difficulty with his oxygen saturation, especially after exertion, the family brought him to the ED to be evaluated. He was to have a stress test done on Friday but did not follow through on that. He is to follow-up with caramel candy maker helper on Friday. He had better urine output today with Lasix at 40 mg. Associated Systoms: Chest Pain; No Cough, No Diaphoresis; Malaise; No Nausea/Vomiting; Shortness of Air (With exertion), Weakness (Generalized) Allergies and Home Medications Allergies Coded Allergies: Sulfa (Sulfonamide Antibiotics) (Verified Allergy, Unknown, 10/01/20) Home Medications Acetaminophen 500 Mg Tablet, 500 MG PO HS, (Reported) Albuterol Sulfate 1 Puff Puff, 2 PUFF INH Q4H PRN for SHORTNESS OF BREATH, (Reported) Atorvastatin Calcium 20 Mg Tablet, 20 MG PO HS, (Reported) Azithromycin 250 Mg Tablet, 250 MG PO UD TAKE 2 TABLETS ON DAY ONE THEN TAKE 1 TABLET DAILY FOR FOUR MORE DAYS Prescribed by: ADIEL GIPSON on 10/07/20 1351 C,E,Zinc,Copper 11/Uifif8j/Lut 1 Each Capsule, 1 EACH PO DAILY, (Reported) Carboxymethylcellulose Sodium 15 Ml Drops, 1 DROP OU DAILY PRN for DRY EYES, (Reported) Cyclosporine 1 Each Droperette, 1 DROP OU BID, (Reported) Digoxin 125 Mcg Tablet, 125 MCG PO DAILY, (Reported) Dronedarone HCl 400 Mg Tablet, 400 MG PO BID, (Reported) Fluticasone Propionate 15.8 Ml [place].susp, 1 SPRAY NS DAILY, (Reported) Furosemide 20 Mg Tablet, 20 MG PO DAILY Prescribed by: ALLAN METZGER on 10/04/20 1304 Magnesium Oxide 400 Mg Tablet, 400 MG PO BID, (Reported) Nitroglycerin 0.4 Mg Tab.subl, 0.4 MG PO UD PRN for CHEST PAIN (ANGINA), (Reported) Tamsulosin HCl 0.4 Mg Cap, 0.4 MG PO BID, (Reported) Warfarin Sodium 2.5 Mg Tablet, 5 MG PO HS, (Reported) TAKES 2 (2.5MG) TABLETS Patient Home Medication List Home Medication List Reviewed: Yes Review of Systems Review of Systems Constitutional: malaise, weakness Respiratory: see HPI Cardiovascular: see HPI Gastrointestinal: no symptoms reported Genitourinary: no symptoms reported Musculoskeletal: no symptoms reported Skin: other (Pale with cool fingers) Psychiatric/Neurological: Weakness (Generalized) Past Shplsrz-Hrpjak-Cdozjy Hx Past Medical History Surgeries: Yes Abdominal (Colostomy), Pacemaker Cardiac: Yes Atrial Fibrillation, High Cholesterol, Hypertension Physical Exam Vital Signs Vital Signs - First Documented Capillary Refill : Height, Weight, BMI Height: '" Weight: lbs. oz. kg; 21.60 BMI Method: General Appearance: No Apparent Distress, Chronically ill Neck: Non Tender, Supple Respiratory: Chest Non Tender, Lungs Clear, Normal Breath Sounds, No Accessory Muscle Use, No Respiratory Distress Cardiovascular: Regular Rate, Rhythm, Normal Peripheral Pulses Gastrointestinal: Normal Bowel Sounds, No Pulsatile Mass, Non Tender, Soft Rectal: Deferred Extremity: Pedal Edema (Trace bilateral pedal edema), Slow Capillary Refill (With co0l fingers) Neurologic/Psychiatric: Alert, Oriented x3 Skin: No Diaphoresis; Pallor Progress/Results/Core Measures Suspected Sepsis SIRS Temperature: Pulse: Respiratory Rate: Laboratory Tests 10/07/20 12:46: White Blood Count 8.8 Blood Pressure / Mean: Laboratory Tests 10/07/20 12:46: Creatinine 1.12, INR Comment 2.5H, Platelet Count 296, Total Bilirubin 0.4 Results/Orders Lab Results Laboratory Tests Test 10/07/20 12:46 Range/Units White Blood Count 8.8 4.3-11.0 10^3/uL Red Blood Count 3.96 L 4.30-5.52 10^6/uL Hemoglobin 12.3 L 13.3-17.7 g/dL Hematocrit 36 L 40-54 % Mean Corpuscular Volume 90 80-99 fL Mean Corpuscular Hemoglobin 31 25-34 pg Mean Corpuscular Hemoglobin Concent 34 32-36 g/dL Red Cell Distribution Width 12.6 10.0-14.5 % Platelet Count 296 130-400 10^3/uL Mean Platelet Volume 8.6 L 9.0-12.2 fL Immature Granulocyte % (Auto) 0 % Neutrophils (%) (Auto) 76 H 42-75 % Lymphocytes (%) (Auto) 9 L 12-44 % Monocytes (%) (Auto) 12 0-12 % Eosinophils (%) (Auto) 2 0-10 % Basophils (%) (Auto) 0 0-10 % Neutrophils # (Auto) 6.7 1.8-7.8 X 10^3 Lymphocytes # (Auto) 0.8 L 1.0-4.0 X 10^3 Monocytes # (Auto) 1.0 0.0-1.0 X 10^3 Eosinophils # (Auto) 0.2 0.0-0.3 10^3/uL Basophils # (Auto) 0.0 0.0-0.1 10^3/uL Immature Granulocyte # (Auto) 0.0 0.0-0.1 10^3/uL Prothrombin Time 27.5 H 12.2-14.7 SEC INR Comment 2.5 H 0.8-1.4 Activated Partial Thromboplast Time 60 H 24-35 SEC Sodium Level 133 L 135-145 MMOL/L Potassium Level 4.0 3.6-5.0 MMOL/L Chloride Level 93 L 98-107 MMOL/L Carbon Dioxide Level 30 21-32 MMOL/L Anion Gap 10 5-14 MMOL/L Blood Urea Nitrogen 17 7-18 MG/DL Creatinine 1.12 0.60-1.30 MG/DL Estimat Glomerular Filtration Rate 62 BUN/Creatinine Ratio 15 Glucose Level 167 H 70-105 MG/DL Calcium Level 9.0 8.5-10.1 MG/DL Corrected Calcium 9.6 8.5-10.1 MG/DL Magnesium Level 1.9 1.6-2.4 MG/DL Total Bilirubin 0.4 0.1-1.0 MG/DL Aspartate Amino Transf (AST/SGOT) 21 5-34 U/L Alanine Aminotransferase (ALT/SGPT) 19 0-55 U/L Alkaline Phosphatase 104 40-136 U/L Troponin I < 0.30 <0.30 NG/ML Pro-B-Type Natriuretic Peptide 245.9 H <75.0 PG/ML Total Protein 6.7 6.4-8.2 GM/DL Albumin 3.3 3.2-4.5 GM/DL My Orders Orders - ADIEL GIPSON MD Cbc With Automated Diff (10/07/20 12:53) Magnesium (10/07/20 12:53) Chest 1 View Ap/Pa Only (10/07/20 12:53) Ekg Tracing (10/07/20 12:53) Comprehensive Metabolic Panel (10/07/20 12:53) Protime With Inr (10/07/20 12:53) Partial Thromboplastin Time (10/07/20 12:53) O2 (10/07/20 12:53) Monitor-Rhythm Ecg Trace Only (10/07/20 12:53) Ed Iv/Invasive Line Start (10/07/20 12:53) Troponin I Fs (10/07/20 12:53) Probnp Fs (10/07/20 12:53) Vital Signs/I&O 10/07/20 10/07/20 12:40 12:40 Temp 36.2 Pulse 76 Resp 15 B/P (MAP) 131/66 (87) Pulse Ox 100 O2 Delivery Room Air Room Air Capillary Refill : Progress Note #1: Progress Note Check basic labs and chest x-ray with electrocardiogram. Compared cardiac enzymes and testing to what was done earlier this week at [facility]. On arrival to the ED his oxygen saturation with using a sensor on his forehead was reading 100% even on room air. Progress Note #2: Progress Note Electrocardiogram shows paced rhythm. His chest x-ray continues to show some mild opacities could be failure as well as cannot rule out some infection. Labs are all stable without acute significant normality. His cardiac enzymes do not show any evidence of heart attack or failure worsening. His oxygen saturation remains at 100% with the probe on his forehead. This is on room air. Reassured patient and family about results. Will use a short course of antibiotics such as a Z-Jeff to help with possible pneumonia. Continue with the Lasix for failure. Follow-up with cardiology this week. Return for worsening symptoms. Use the oxygen with activity. Make sure to warm his hands and fingers up before checking the O2 sat ECG Initial ECG Impression Date: Oct 07, 2020 Initial ECG Impression Time: 12:43 Initial ECG Rate: 90 Initial ECG Comparisson: Unchanged Comment Atrial paced complexes with a heart rate of 90 bpm. NC interval 154 ms. QT interval 288 ms with a QTc interval 353 ms. There is no acute ST elevation. Appears similar to tracing in the system Diagnostic Imaging Diagonstic Imaging: Xray Plain Films/CT/US/NM/MRI: chest Comments [facility] [place], [place] NAME: ROBERTA TONG [facility] REC#: [id number] PT STATUS: REG ER : 1935 PHYSICIAN: ADIEL GIPSON MD ADMIT DATE: 10/07/20/ER FS Draft Date of Exam:10/07/20 CHEST 1 VIEW AP/PA ONLY INDICATION: Chest pressure. TIME OF EXAM: 12:46 PM Correlation is made with prior chest from 10/01/2020. Heart size normal. Cardiac pacer is in place. Some mild opacities in the bases, similar to prior exam. There are some mild airspace opacities right upper lobe as well. No effusion is seen. No pneumothorax. IMPRESSION: Continued subtle airspace opacities in the both lungs, suggestive of pneumonia. Dictated on workstation # [id number] Dict: 10/07/20 1302 Trans: 10/07/20 1304 CV [id number] Interpreted by: LACHELLE JONES MD Electronically signed by: Reviewed: Reviewed by Me Departure Impression Primary Impression: Chest pain on exertion Additional Impression: Short of breath on exertion Disposition: 01 HOME, SELF-CARE Condition: Stable Departure-Patient Inst. Decision time for Depature: 13:51 Referrals: NOAM TERRELL MD (PCP/Family) Primary Care Physician Patient Instructions: Shortness of Breath, Adult ED, Chest Pain, Adult ED Add. Discharge Instructions: Your blood work for the heart looked stable today and no sign of heart attack or new heart damage. Your chest xray still shows some faint changes in the lungs that can be from the fluid from the heart failure but there could be a mild infection present as well. Take the antibiotic to treat for possible infection causing some of your chest pain and shortness of breath. The antibiotic can make your INR from the Warfarin (Coumadin) go up so make sure to have the clinic watch that and keep checking it. Continue on the Lasix (furosemide) to help with fluid on your lungs. Use the oxygen at 2 Liters per minute when you are active or up doing something. After you catch your breath when you set back down and are resting you could remove the oxygen. Try warming your hands before checking the oxygen level at home with your fingers since the probe will not pecan picker well if your fingers are cold. All discharge instructions reviewed with patient and/or family. Voiced understanding. Scripts Azithromycin (Azithromycin) 250 Mg Tablet 250 MG PO UD for 5 Days, #6 TAB 0 Refills TAKE 2 TABLETS ON DAY ONE THEN TAKE 1 TABLET DAILY FOR FOUR MORE DAYS Prov: ADIEL GIPSON MD 10/07/20 ADIEL GIPSON MD Oct 07, 2020 13:01
--- NOTE | 2020-10-07 13:05 | Diagnostic Imaging Report ---
INDICATION: Chest pressure. TIME OF EXAM: 12:46 PM Correlation is made with prior chest from 10/01/2020. Heart size normal. Cardiac pacer is in place. Some mild opacities in the bases, similar to prior exam. There are some mild airspace opacities right upper lobe as well. No effusion is seen. No pneumothorax. IMPRESSION: Continued subtle airspace opacities in the both lungs, suggestive of pneumonia. Dictated by: Dictated on workstation # [id number]
[2020-10-07 13:10] LABS: ALBUMIN 3.3 GM/DL (3.2-4.5); BILIRUBIN,TOTAL 0.4 MG/DL (0.1-1.0); CREATININE SERUM 1.12 MG/DL (0.60-1.30); MAGNESIUM 1.9 MG/DL (1.6-2.4); TOTAL PROTEIN 6.7 GM/DL (6.4-8.2)
[2020-10-07 13:22] LABS: INR 2.5 (0.8-1.4); PROTHROMBIN TIME PATIENT 27.5 SEC (12.2-14.7)
[2020-10-07] MEDS ORDERED: AZIT250T12 PO (13:51)
== END 2020-10-07 13:54 | disposition home or self-care (01) ==
LOC: EDUNIT# 12:38 → ER FS 12:40
DX: R07.89 Other chest pain (principal); R06.09 Other forms of dyspnea; I10 Essential (primary) hypertension; I48.91 Unspecified atrial fibrillation; E78.00 Pure hypercholesterolemia, unspecified; Z79.01 Long term (current) use of anticoagulants; Z79.899 Other long term (current) drug therapy
CPT/HCPCS: 36415; 71045; 80053; 83735; 83880; 84484; 85025; 85610; 85730; 93005; 93041